=== PATIENT | female | born 1950 | race Two or more races ===

== ENCOUNTER → 2017-04-21 | Outpatient (CLI) | payer MEDICARE, BC ==
--- NOTE | 2017-04-21 08:53 | RAD ---
INDICATION: ACUTE PAIN OF LEFT KNEE X 3 WEEKS, NO INJURY COMPARISON: None. IMPRESSION: Left knee: 3 views obtained without definite acute fracture or dislocation. Degenerative changes are identified with osteophyte formation, mild. Calcific atherosclerosis.
== END | disposition home or self-care (01) ==
LOC: DXRADRC 07:57
PROVIDERS: ATTEND Nurse Practitioner Family
DX: M25.762 Osteophyte, left knee (principal); I70.8 Atherosclerosis of other arteries
CPT/HCPCS: 73562

== ENCOUNTER → 2019-10-21 | Outpatient (CLI) | payer MEDICARE, BC ==
--- NOTE | 2019-10-21 08:23 | RAD ---
Examination: HAND BILAT 3V History: Bilateral hand stiffness and pain Comparison/Correlation: None Findings: 3 views of the right hand were obtained. 3 views of left hand were obtained. Osteopenia is present. No displaced fracture or bone destruction. No significant joint space narrowing or other degenerative change for the patient's age. Soft tissues are unremarkable. Impression: Osteopenia. Electronically signed by: Vito Garland MD (10/21/2019 8:20 AM) [facility]
== END | disposition home or self-care (01) ==
LOC: PMG 07:57
PROVIDERS: ATTEND Physician Assistant Medical
DX: M85.842 Other specified disorders of bone density and structure, left hand (principal); M85.841 Other specified disorders of bone density and structure, right hand
CPT/HCPCS: 73130

== ENCOUNTER → 2020-04-24 | Outpatient (CLI) | payer MEDICARE, BC ==
--- NOTE | 2020-04-24 08:12 | RAD ---
EXAM: Frontal chest with 3 view left rib series. HISTORY: Chest wall pain. COMPARISON: None. FINDINGS: There are no confluent infiltrates. There is no pneumothorax or pleural effusion. The heart is not enlarged. There are atherosclerotic calcifications of the aorta. There are no displaced left rib fractures. IMPRESSION: 1. No displaced left rib fractures. Electronically signed by: Wale Parker MD (04/24/2020 8:09 AM) [id number]
== END ==
LOC: LAB 07:29
PROVIDERS: ATTEND Physician Assistant Medical
DX: R07.89 Other chest pain (principal); I70.0 Atherosclerosis of aorta
CPT/HCPCS: 71101